=== PATIENT | female | born 1995 | race Caucasian/White ===

== ENCOUNTER → 2018-07-04 20:19 | Emergency (ER) | payer BC ==
--- NOTE | 2018-07-04 22:35 | ED ---
Laceration/Wound HPI - HPI Summary HPI Summary: 22-year-old female presents with left index finger laceration today. She states she cut it while cutting potatoes. The area continues to bleed. No numbness or tingling. she has full range of motion finger. No other injury. Tetanus up-to-date. No medical conditions. - History of Current Complaint Stated Complaint: RT POINTER FINGER LAC Time Seen by Provider: 07/04/18 21:56 Pain Intensity: 8 - Allergy/Home Medications Allergies/Adverse Reactions: Allergies Allergy/AdvReac Type Severity Reaction Status Date / Time Penicillins Allergy Rash Verified 07/04/18 20:25 PMH/Surg Hx/FS Hx/Imm Hx Endocrine/Hematology History: Denies: Hx Anticoagulant Therapy Respiratory History: Denies: Hx Asthma Infectious Disease History: No Infectious Disease History: Denies: Traveled Outside the [place] in Last 30 Days - Family History Known Family History: Negative: Diabetes - Social History Substance Use Type: Reports: None Smoking Status (MU): Never Smoked Tobacco Review of Systems Negative: Fever Negative: Chest Pain Negative: Shortness Of Breath Positive: Other - laceration left index finger All Other Systems Reviewed And Are Negative: Yes Physical Exam Triage Information Reviewed: Yes Vital Signs On Initial Exam: Initial Vitals Temp Pulse Resp BP Pulse Ox 98.5 F 93 16 136/88 100 07/04/18 20:23 07/04/18 20:23 07/04/18 20:23 07/04/18 20:23 07/04/18 20:23 Vital Signs Reviewed: Yes Appearance: Positive: Well-Appearing Skin: Positive: Other - 2cm superficial laceration distal phalanx to left index finger Head/Face: Positive: Normal Head/Face Inspection Eyes: Positive: Normal, Conjunctiva Clear ENT: Positive: Pharynx normal Respiratory/Lung Sounds: Positive: Clear to Auscultation, Breath Sounds Present Cardiovascular: Positive: Normal, RRR Musculoskeletal: Positive: Strength/ROM Intact - left index finger, Other - good pulses, Neurological: Positive: Normal Psychiatric: Positive: Normal Procedures - Laceration/Wound Repair 1 Location: Other - left index finger Description: Linear Length, Depth and Shape: 2cm superficial Irrigated w/ Saline (ccs): 200 Closure: Skin Adhesive, SteriStrips Diagnostics - Vital Signs Vital Signs Temp Pulse Resp BP Pulse Ox 07/04/18 20:23 98.5 F 93 16 136/88 100 - Laboratory Lab Statement: Any lab studies that have been ordered have been reviewed, and results considered in the medical decision making process. Laceration Repair Course/Dx - Course Course Of Treatment: 22-year-old female presents with left index finger laceration today. She states she cut it while cutting potatoes. The area continues to bleed. No numbness or tingling. she has full range of motion finger. No other injury. Tetanus up-to-date. No medical conditions. On exam has 2cm superficial laceration of left index finger at distal phalanx. Cleaned area and place glue and Steri-Strips. Told to keep the area clean and dry. Patient understands agrees with plan. - Differential Dx Differental Diagnoses: Abrasion, Avulsion, Laceration - Clinical Impression Provider Diagnoses: Laceration of left index finger Discharge - Sign-Out/Discharge Documenting (check all that apply): Patient Departure - Discharge Plan Condition: Good Disposition: HOME Patient Education Materials: Skin Adhesive Care (ED) Referrals: No Primary Care Phys,NOPCP [Primary Care Provider] - Additional Instructions: Take Tylenol or ibuprofen for pain as needed every 6 hours Keep dry for 24 hours Glue will fall off on own Avoid scrubbing area Use sunscreen on area after laceration has healed Return to ED if develop any signs of infection or any new or worsening symptoms - Billing Disposition and Condition Condition: GOOD Disposition: Home
[2018-07-04 22:49] VITALS: BP 0/0
== END | disposition home or self-care (01) ==
LOC: ED 20:19
DX: S61.211A Laceration without foreign body of left index finger without damage to nail, initial encounter (principal); W45.8XXA Other foreign body or object entering through skin, initial encounter; Y93.G1 Activity, food preparation and clean up; Y92.9 Unspecified place or not applicable; Z88.0 Allergy status to penicillin
CPT/HCPCS: 12001; 99282